=== PATIENT | male | born 1990 | race Caucasian/White ===

== ENCOUNTER 2018-08-30 08:12 | Emergency (ER) | payer SELFPAY ==
[~2018-08-30] VITALS: Ht 177.8 cm; Wt 56.7 kg
[2018-08-30 08:15] VITALS: BP_SYST 111
[2018-08-30 08:32] VITALS: BP_SYST 110
== END 2018-08-30 08:32 | disposition home or self-care (01) ==
LOC: SED 08:12
DX: M79.601 Pain in right arm (principal)
CPT/HCPCS: 99283